=== PATIENT | female | born 1995 | race Caucasian/White ===

== ENCOUNTER 2016-06-15 20:32 | Emergency (ER) | payer OTHER ==
[~2016-06-15] VITALS: Ht 165.1 cm; Wt 88.5 kg
[~2016-06-15 20:32] MED LIST: CEPH-443; CEPH-443 PO; SULF1TAB7
[2016-06-15 20:40] VITALS: Ht 165.1 cm; Wt 88.5 kg
[2016-06-15 22:39] LABS: URINE BLOOD (Dip) POC 3+ (NEGATIVE)
[2016-06-15] MEDS ORDERED: ACETAMINOPHEN 325 MG TAB PO STA (22:56)
[2016-06-15] MEDS ORDERED: CEFTRIAXONE 1 GM/50 ML (PMX) 50 ML IVPB STA (22:56)
[2016-06-15] MEDS ORDERED: SODIUM CHLORIDE 0.9% 1L BAG IV* STA (22:56)
--- NOTE | 2016-06-15 23:09 | ERD ---
ER Documentation Chief Complaint Date/Time DATE: 06/15/16 TIME: 23:05 Chief Complaint Bilateral Flank pain and fever since Saturday HPI 21-year-old female presents with chief complaint of bilateral flank pain 2 days. Associated symptoms include fever. She denies dysuria, hematuria, nausea /vomiting, and abdominal pain. She has not taken medication for pain relief. Pain is constant, no aggravating factors. She denies history of diabetes mellitus. ROS All systems reviewed and are negative except as per history of present illness. Medications Home Meds Active Scripts Acetaminophen* (Tylenol*) 325 Mg Tablet, 2 TAB PO Q6 Y for PAIN AND OR ELEVATED TEMP, #20 TAB Prov:Ailyn Ervin PA-C 06/16/16 Ciprofloxacin Hcl* (Ciprofloxacin Hcl*) 500 Mg Tablet, 500 MG PO BID for 7 Days , TAB Prov:Ailyn Ervin PA-C 06/16/16 Cephalexin* (Keflex*) 500 Mg Capsule, 500 MG PO QID for 5 Days, CAP Prov:KYM [employer] 01/22/15 Reported Medications Cephalexin* (Keflex*) 500 Mg Capsule 08/29/10 Sulfamethoxazole-Trimethoprim* (Bactrim* DS) 1 Tab Tab 08/29/10 Allergies Allergies: Coded Allergies: No Known Allergy (Verified , 01/22/15) PMhx/Soc Medical and Surgical Hx: pt denies Medical Hx, pt denies Surgical Hx History of Surgery: No Anesthesia Reaction: No Hx Neurological Disorder: No Hx Respiratory Disorders: No Hx Cardiac Disorders: No Hx Psychiatric Problems: No Hx Miscellaneous Medical Probl: No Hx Alcohol Use: No Hx Substance Use: No Hx Tobacco Use: No Smoking Status: Never smoker Physical Exam Vitals Vital Signs Date Time Temp Pulse Resp B/P Pulse Ox O2 Delivery O2 Flow Rate FiO2 06/16/16 01:15 99.2 99 18 131/73 99 Room Air 06/15/16 23:00 100 116/64 97 Room Air 06/15/16 20:40 101.2 127 18 131/75 97 Physical Exam GENERAL: Non-toxic. No apparent signs of distress. LUNGS: Clear to auscultation. No accessory muscle use. No wheezing, no crackles. No signs or symptoms of respiratory distress. HEART: Regular rate and rhythm. No murmurs, clicks, rubs or gallops. ABDOMEN: Soft, nontender and nondistended. Bowel sounds positive. No rebound or guarding. No gross peritoneal signs. No Cook or McBurney point tenderness. No gross masses. BACK: No midline tenderness, no costovertebral tenderness. NEURO: The patient moves all 4 extremities with 5/5 strength. Cranial nerves are grossly intact. Normal mental status for age. Good muscle tone. SKIN: There is no apparent rash, petechiae, erythema or swelling. Good skin turgor. Result Diagram: 06/15/16 2305 06/15/16 2305 Results 24 hrs Laboratory Tests Test 06/15/16 22:37 06/15/16 23:05 Bedside Urine Blood 3+ Bedside Urine Glucose (UA) Negative Bedside Urine Ketones (LAB) 3+ Bedside Urine Leukocyte Esterase (L 1+ Bedside Urine Nitrite (LAB) Positive Bedside Urine Protein (LAB) 2+ Bedside Urine pH (LAB) 5.5 Activated Partial Thromboplast Time 27.3Sec Alanine Aminotransferase (ALT/SGPT) 24IU/L Albumin 4.0g/dl Albumin/Globulin Ratio 1.05 Alkaline Phosphatase 105IU/L Anion Gap 15 Aspartate Amino Transf (AST/SGOT) 21IU/L Basophils # 0.010^3/ul Basophils % 0.2% Blood Urea Nitrogen 12mg/dl Calcium Level 8.9mg/dl Carbon Dioxide Level 25mmol/L Chloride Level 102mmol/L Creatinine 0.67mg/dl Direct Bilirubin 0.00mg/dl Eosinophils # 0.010^3/ul Eosinophils % 0.2% Globulin 3.80g/dl Glucose Level 89mg/dl Hematocrit 37.6% Hemoglobin 13.1g/dl INR International Normalized Ratio 1.07 Indirect Bilirubin 0.4mg/dl Lactic Acid Level 0.9mmol/L Lymphocytes # 2.210^3/ul Lymphocytes % 17.3% Mean Corpuscular Hemoglobin 29.8pg Mean Corpuscular Hemoglobin Concent 34.8g/dl Mean Corpuscular Volume 85.6fl Mean Platelet Volume 10.5fl Monocytes # 1.310^3/ul Monocytes % 10.0% Neutrophils # 9.110^3/ul Neutrophils % 72.0% Nucleated Red Blood Cells # 0.010^3/ul Nucleated Red Blood Cells % 0.0/100WBC Platelet Count 15689^3/UL Potassium Level 3.9mmol/L Prothrombin Time 13.9Sec Prothrombin Time Ratio 1.1 Red Blood Count 4.3910^6/ul Red Cell Distribution Width 11.7% Sodium Level 138mmol/L Total Bilirubin 0.4mg/dl Total Protein 7.8g/dl White Blood Count 12.710^3/ul Current Medications Medications (Trade) Dose Ordered Sig/Lupe Route PRN Reason Start Time Stop Time Status Last Admin Dose Admin Sodium Chloride (NS) 2,740 ml BOLUS OVER 2 HOURS STAT IV* 06/15/16 22:56 06/15/16 23:01 DC 06/15/16 23:31 Acetaminophen 650 mg 650 mg ONCE STAT PO 06/15/16 22:56 06/15/16 23:01 DC 06/15/16 23:31 Ceftriaxone Sodium (Rocephin) 50 ml @ 100 mls/hr ONCE STAT IVPB 06/15/16 22:56 06/15/16 23:25 DC 06/15/16 23:31 Procedures/MDM Patient presented with fever of 101.2 and a pulse of 127 in triage, she meets SIRS criteria. Sepsis workup was ordered along with 30 min/kg of IV fluids, IV ceftriaxone, and Tylenol for presumed pyelonephritis. Patient's urine dip revealed 1+ leukocyte esterase and positive nitrites. Awaiting results prior to further management. CBC: Mild leukocytosis of 12.7, no anemia CMP: No severe electrolyte imbalance, no signs of severe dehydration, normal kidney function, LFTs within normal limits Lactic acid: 0.9 UA: 1+ leukocyte esterase and positive nitrite Blood culture and urine culture sent. Patient was given over 2 L of fluids in the ER due to initially meeting SIRS criteria, she reported relief of symptoms after medications. Patient's physical exam findings and symptoms are likely due to pyelonephritis. At this time of low suspicion for nephrolithiasis, acute surgical abdomen, and PID. Further imaging is not necessary at this time. Patient appears to be no acute distress, and has no tenderness to palpation of the abdomen. Patient is stable for discharge and outpatient management. Advised to follow- up with PCP in 1-2 days Departure Diagnosis: Primary Impression: Pyelonephritis Condition: Good Ailyn Ervin PA-C Jun 15, 2016 23:09
[2016-06-15 23:40] LABS: ADD SCAN DIFF NO
[2016-06-15 23:50] LABS: POTASSIUM 3.9 mmol/L (3.5-5.1)
[2016-06-15 23:51] LABS: INR 1.07; PROTIME 13.9 Sec (12.2-14.2); PT RATIO 1.1
[2016-06-15 23:52] LABS: BASOPHILS % 0.2 % (0.0-2.0); BILIRUBIN,INDIRECT 0.4 mg/dl (0-1.1); BILIRUBIN,TOTAL 0.4 mg/dl (0.2-1.3); CREATININE 0.67 mg/dl (0.44-1.00); EOSINOPHILS % 0.2 % (0.0-7.0); HEMATOCRIT 37.6 % (37.0-47.0); HEMOGLOBIN 13.1 g/dl (12.0-16.0); LYMPHOCYTES # 2.2 10^3/ul (0.8-2.9); LYMPHOCYTES % 17.3 % (15.0-51.0); MEAN CORPUSCULAR HEMOGLOBIN 29.8 pg (29.0-33.0); MEAN CORPUSCULAR HGB CONC 34.8 g/dl (32.0-37.0); MEAN CORPUSCULAR VOLUME 85.6 fl (82.0-101.0); MEAN PLATELET VOLUME 10.5 fl (7.4-10.4); MONOCYTE # 1.3 10^3/ul (0.3-0.9); NEUTROPHIL # 9.1 10^3/ul (1.6-7.5); PARTIAL THROMBOPLASTIN TIME 27.3 Sec (25.0-35.0); PLATELET COUNT 171 10^3/UL (140-415); RED BLOOD COUNT 4.39 10^6/ul (4.20-5.40); RED CELL DISTRIBUTION WIDTH 11.7 % (11.5-14.5); WHITE BLOOD COUNT 12.7 10^3/ul (4.8-10.8)
[2016-06-15 23:53] LABS: ALBUMIN/GLOBULIN RATIO 1.05; CALCIUM 8.9 mg/dl (8.4-10.2); TOTAL PROTEIN 7.8 g/dl (6.1-8.1)
[2016-06-16] MEDS ORDERED: ACET325T33 PO (00:49)
[2016-06-16] MEDS ORDERED: CIPR500T4 PO (00:49)
[2016-06-16 01:15] VITALS: BP 131/73; PULSE 99; RESP 18; TEMP 99.2
== END 2016-06-16 01:15 | disposition home or self-care (01) ==
LOC: FTE 20:32
DX: N12 Tubulo-interstitial nephritis, not specified as acute or chronic (principal)
CPT/HCPCS: 36415; 80053; 81003; 83605; 85025; 85610; 85730; 87040; 96374; J0696; J7030; Z7502; Z7610